=== PATIENT | female | born 1950 | race Caucasian/White ===

== ENCOUNTER → 2021-11-05 | Outpatient (CLI) | payer MEDICARE, OTHER ==
[~2021-11-05] MED LIST: ASPI325 PO; ASPI325EC; BACL10 PO; CODACE30 PO; FAMO20 PO; IBUP400 PO; OXYC5 PO; PRAV20; RANI150 PO
== END | disposition home or self-care (01) ==
LOC: LAB SHORT 14:27
DX: L13.9 Bullous disorder, unspecified (principal)
CPT/HCPCS: 87070; 87075; 87147; 87205

== ENCOUNTER 2022-02-27 07:19 | Day surgery (SDC) | payer MEDICARE, OTHER ==
[~2022-02-27] VITALS: Ht 160 cm; Wt 76.5 kg
[2022-02-27 08:05] LABS: Hemoglobin 13.5 g/dL (11.5-16.0); Mean Corpuscular HGB 31.5 pg (26.0-34.0); Mean Corpuscular HGB Conc 32.1 g/dL (31.5-36.5); Mean Corpuscular Volume 98 fL (80-100); Mean Platelet Volume 10.3 fL (9.1-12.4); Platelet Count 283 K/mm3 (150-400); RDW Coefficient Variation 12.8 % (11.7-14.2); RDW Standard Deviation 45.9 fL (35.1-46.3); Red Blood Cell Count 4.28 M/mm3 (3.80-5.20); White Blood Cell Count 5.48 K/mm3 (4.00-11.30)
[2022-02-27 08:20] LABS: International Normalized Ratio 0.94; Prothrombin Time Results 9.9 Sec (9.7-11.5)
[2022-02-27 08:26] LABS: Calcium, Blood 9.3 mg/dL (8.5-10.1); Creatinine, Blood 0.42 mg/dL (0.40-1.00); Potassium, Blood 4.1 mmol/L (3.5-5.5)
--- NOTE | 2022-02-27 08:54 | NUR ---
02/27/22 0854 Herbie Wall ROPIVACAINE 0.2% 20 MLS MIXED W/ 0.10 ML EPI PER ORDER TO MAKE ROPIVACAINE 0.2% 1:200,000 FOR INJECTION AT [facility] BY DR SILVA. ALL 20 MLS INJECTED.
== END 2022-02-27 11:09 | disposition home or self-care (01) ==
LOC: ORSCSDS 07:19
PROVIDERS: Podiatrist Foot & Ankle Surgery
DX: M20.5X2 Other deformities of toe(s) (acquired), left foot (principal); M20.42 Other hammer toe(s) (acquired), left foot; J45.909 Unspecified asthma, uncomplicated; Z79.899 Other long term (current) drug therapy; Z79.82 Long term (current) use of aspirin
CPT/HCPCS: 80048; 85027; 85610; A9270; C1713; C1769; J0171; J0690; J1100; J2405; J2704; J2795; J3010; J7120

== ENCOUNTER 2022-04-15 23:31 | Inpatient (IN) | payer OTHER, MEDICARE ==
[~2022-04-15] VITALS: Ht 162.6 cm; Wt 74.9 kg
[~2022-04-15 23:31] MED LIST changes: -ASPI325EC; +Aspirin325 MG PO; -PRAV20; +PRAV20 PO
[2022-04-16 01:15] LABS: BASOPHILS ABSOLUTE AUTO 0.05 K/mm3 (0.00-0.23); BASOPHILS PERCENT AUTO 0 % (0-2); EOSINOPHILS ABSOLUTE AUTO 0.04 K/mm3 (0.00-0.68); EOSINOPHILS PERCENT AUTO 0 % (0-6); Hematocrit 37.7 % (33.0-51.0); Hemoglobin 12.6 g/dL (11.5-16.0); IMMATURE GRAN ABSOLUTE AUTO 0.05 K/mm3 (0.00-0.10); IMMATURE GRAN PERCENT AUTO 0 % (0-1); LYMPHOCYTES ABSOLUTE AUTO 1.03 K/mm3 (0.84-5.20); LYMPHOCYTES PERCENT AUTO 9 % (21-46); MONOCYTES ABSOLUTE AUTO 0.65 K/mm3 (0.16-1.47); MONOCYTES PERCENT AUTO 5 % (4-13); Mean Corpuscular HGB 32.4 pg (26.0-34.0); Mean Corpuscular HGB Conc 33.4 g/dL (31.5-36.5); Mean Corpuscular Volume 97 fL (80-100); NEUTROPHILS ABSOLUTE AUTO 10.13 K/mm3 (1.96-9.15); NEUTROPHILS PERCENT AUTO 85 % (41-73); Platelet Count 242 K/mm3 (150-400); RDW Coefficient Variation 13.1 % (11.7-14.2); RDW Standard Deviation 46.9 fL (35.1-46.3); Red Blood Cell Count 3.89 M/mm3 (3.80-5.20); White Blood Cell Count 11.95 K/mm3 (4.00-11.30)
[2022-04-16 01:32] LABS: International Normalized Ratio 1.02; Prothrombin Time Results 10.7 Sec (9.7-11.5)
[2022-04-16 01:33] LABS: Albumin, Blood 3.5 g/dL (3.4-5.0); Albumin/Globulin Ratio 1.1 (0.8-1.8); Bilirubin, Total 0.2 mg/dL (0.1-1.0); Bun/Creatinine Ratio 42.2 (12.0-20.0); Calcium, Blood 8.7 mg/dL (8.5-10.1); Creatinine, Blood 0.4 mg/dL (0.40-1.00); Globulin, Blood 3.2 g/dL (2.2-4.0); Potassium, Blood 3.9 mmol/L (3.5-5.5); Total Protein, Blood 6.7 g/dL (6.4-8.2)
[2022-04-16 03:27] LABS: Influenza A, PCR NEGATIVE (NEGATIVE); Influenza B, PCR NEGATIVE (NEGATIVE); Resp Syncytial Virus, PCR NEGATIVE (NEGATIVE); SARS-Cov-2 (COVID-19) PCR, MMC NEGATIVE (NEGATIVE)
--- NOTE | 2022-04-16 05:20 | NUR ---
SHIFT SUMMARY PT ER ADMIT THIS SHIFT FOR LEFT HIP FRACTURE, PT REPORTS THAT HER HIP JUST POPPED OUT OF PLACE WHEN WALKING IN HER HOME WHICH RESULTED IN A SOFT FALL TO THE FLOOR. PT REPORTS THAT SHE HAD NO PAIN PRIOR TO THE EVENT OR AFTER. PT REPORTS A PMH OF ARTHRITIS, AND SHE HAS BEEN EVALUATED FOR ISSUES WITH HER HIP IN THE PAST. PT HAS BEEN NPO, DR. RUEDA TO CONSULT. SHE HAS BEEN MEDICATED FOR PAIN WITH EFFECT. FLUIDS INFUSING. ADMISSION COMPLETE AND VITALS STABLE. BED IN LOWEST POSITION, CALL LIGHT WITHIN REACH.
--- NOTE | 2022-04-16 13:30 | NUR ---
3 IV ATTEMPTS BY MEGHAN Ybarra RN. IV PLACED BY DEB Mayes RN
--- NOTE | 2022-04-16 13:31 | NUR ---
History, Chart, Medications and Allergies reviewed before start of procedure. Patient confirms NPO status and agrees with scheduled surgery. Pre-Op teaching done. Pt verbalizes understanding.
--- NOTE | 2022-04-16 17:45 | NUR ---
SHIFT SUMMARY PT S/P L TOTAL HIP. PRINEO DRESSING IN PLACE AND CDI. PT DENIES PAIN AFTER SURGERY AND IS A/O X4. PT TOLERATING PO INTAKE WELL. GRANDA PATENT AND DRAINING TO GRAVITY. VSS.
--- NOTE | 2022-04-17 06:35 | NUR ---
POD 1 S/P L TKA. PT VSS T/O NIGHT. DRESSING CDI. CAP REFILL WNL, PT DENEID CHANGES IN SENSATION. PAIN MGD W/1 OXYCODONE W/REP RELIEF. PT LISA REG PO, DENIED N/V. GRANDA PATANT DRNG CLEAR YELLOW URINE. AWAITING PT EVAL/TX.
[2022-04-17] MEDS ORDERED: ACET500 PO (11:50)
[2022-04-17] MEDS ORDERED: CODACE30 PO (11:51)
[2022-04-17] MEDS ORDERED: ASPI81CH PO (11:51)
[2022-04-17] MEDS ORDERED: SENN187 PO (11:52)
--- NOTE | 2022-04-17 15:40 | NUR ---
DISCHARGE SUMMARY PT POD #1 FOR L TOTAL ANTERIOR HIP. PRINERO DRESSING CDI. PAIN TREATED PER EMR WITH GOOD EFFECT. PT WORKED WITH PHYSICAL THERAPY AND DID WELL. PT HAS WALKER AT HOME. VSS. PT DISCHARGED HOME WITH .
== END 2022-04-17 15:42 | disposition home or self-care (01) | DRG 522 ==
LOC: ER 23:31 → SURS 04-16 00:56
PROVIDERS: Orthopaedic Surgery; Student in an Organized Health Care Education/Training Program; ADMIT Internal Medicine
PROC: 0SRB04A Replacement of Left Hip Joint with Ceramic on Polyethylene Synthetic Substitute, Uncemented, Open Approach (ICD-10-PCS; principal; 2022-04-16 14:00)
DX: M80.052A Age-related osteoporosis with current pathological fracture, left femur, initial encounter for fracture (principal); M19.90 Unspecified osteoarthritis, unspecified site; E78.00 Pure hypercholesterolemia, unspecified; Z96.653 Presence of artificial knee joint, bilateral; Z20.822 Contact with and (suspected) exposure to COVID-19; W01.0XXA Fall on same level from slipping, tripping and stumbling without subsequent striking against object, initial encounter; Z88.5 Allergy status to narcotic agent; Z79.82 Long term (current) use of aspirin; Z79.899 Other long term (current) drug therapy; Z98.890 Other specified postprocedural states
CPT/HCPCS: 0241U; 36415; 51702; 72170; 73502; 80053; 85025; 85610; 85730; 96374; 97110; 97116; 97161; 97165; 97530; 97535; 99284-25; A9270; C1776; J0171; J0690; J0735; J1100; J1885; J2250; J2405; J2704; J2795; J3010; J7030; J7120

== ENCOUNTER 2023-08-17 07:19 | Day surgery (SDC) | payer MEDICARE, OTHER ==
[~2023-08-17] VITALS: Ht 160 cm; Wt 74.4 kg
[~2023-08-17 07:19] MED LIST changes: +ACET500 PO; +ASPI81CH PO; +Lactated Ringer's 1,000 ML IV ONE; -PRAV20 PO; +Pravastatin Sod40 MG PO; +SENN187 PO; +SUPPLEMENTS PO; +TYLENOL #4 PO; +VIT PO; +propofoL 50 ML IV ONE
[2023-08-17] MEDS ORDERED: Aspir 8181 MG (08:05)
[2023-08-17] MEDS ORDERED: Lactated Ringer's 1,000 ML IV ONE (08:23)
[2023-08-17 09:24] VITALS: BP 102/61
== END 2023-08-17 09:20 | disposition home or self-care (01) ==
LOC: ORSCSDS 07:19
PROVIDERS: Surgery
PROC: 0DJD8ZZ Inspection of Lower Intestinal Tract, Via Natural or Artificial Opening Endoscopic (ICD-10-PCS; principal; 2023-08-17 08:30)
DX: Z12.11 Encounter for screening for malignant neoplasm of colon (principal); K57.30 Diverticulosis of large intestine without perforation or abscess without bleeding; Z86.010 Personal history of colon polyps; J45.909 Unspecified asthma, uncomplicated; K21.9 Gastro-esophageal reflux disease without esophagitis; E78.5 Hyperlipidemia, unspecified; Z79.899 Other long term (current) drug therapy
CPT/HCPCS: J2704; J7120